=== PATIENT | female | born 2005 | race Caucasian/White ===

== ENCOUNTER 2024-01-19 21:32 | Emergency (ER) | payer OTHER, SELFPAY ==
[2024-01-19 21:35] VITALS: BP 140/89
[2024-01-19 21:58] LABS: % Basophils 0.4 % (0-2); % Immature Granulocytes 0.1 % (0-0.5); % Monocytes 8.5 % (1.7-9.3); Absolute Eosinophils 0.1 10^3/uL (0-0.7); Absolute Lymphocytes 3.3 10^3/uL (1.2-3.4); Absolute Monocytes 0.7 10^3/uL (0.1-0.6); Absolute Neutrophils 3.6 10^3/uL (1.4-6.5); Hematocrit 33.4 % (37.0-47.0); Hemoglobin 10.5 g/dL (12.0-16.0); Mean Corp Hgb Conc. 31.4 g/dL (33.0-37.0); Mean Corpuscular Hgb 20.3 pg (27.0-31.0); Mean Corpuscular Volume 64.6 fL (81.0-99.0); Mean Platelet Volume 8.9 fL (7.4-10.4); Nucleated Red Blood Cells % 0 %; Platelet Count 331 10^3/uL (130-400); Red Blood Cell Count 5.17 10^6/uL (4.20-5.40); Red Cell Dist. Width 18.7 % (11.5-14.5); White Blood Cell Count 7.6 10^3/uL (4.8-10.8)
[2024-01-19 22:07] LABS: HCG, Serum Qualitative Screen Negative
[2024-01-19 22:09] LABS: Urine Albumin Negative (Neg - Trace); Urine Bilirubin Negative (Negative); Urine Character Clear (Clear); Urine Color Yellow; Urine Glucose Negative (Negative); Urine Ketone Negative (Negative); Urine Leukocyte Negative (Negative); Urine Nitrite Negative (Negative); Urine Occult Blood Negative (Negative); Urine Specific Gravity 1.015 (<1.030); Urine Urobilinogen Negative (Neg - 1+)
[2024-01-19 22:17] LABS: ALT (SGPT) 17 U/L (0-35); AST (SGOT) 31 U/L (14-36); Albumin 4.7 g/dl (3.5-5.0); Alkaline Phosphatase 80 U/L (38-126); Blood Urea Nitrogen 9 mg/dl (7-17); Calcium 9.2 mg/dl (8.4-10.2); Carbon Dioxide 25 mmol/L (22-30); Chloride 104 mmol/L (98-107); Glucose 90 mg/dl (70-99); Potassium 3.5 mmol/L (3.5-5.1); Sodium 137 mmol/L (135-145); Total Bilirubin 0.3 mg/dl (0.2-1.3); eGFR > 60.00
[2024-01-20] MEDS: VALIUM 5 MG PO (00:59)
[2024-01-20 01:06] LABS: COVID-19 Antigen Negative (Negative)
--- NOTE | 2024-01-20 01:14 | ED.GENMED ---
History of Present Illness
General
Chief Complaint: Musculo-Skeletal Complaint
Source: patient and family
Exam Limitations: none
Time Seen by Provider: 01/20/24 00:04
Travel History
Have you had any contact with someone who has COVID-19?: No
Do you have any symptoms of coronavirus? Fever > 100 degrees, chills, cough, shortness of breath, sore throat, loss of taste or smell, muscle aches, or headache?: Yes
Symptoms:: body aches
History of Present Illness
History of Present Illness:
18-year-old female presents with neck stiffness. She states it started in her left trapezius region and now is also on the right. She does lift weights and also lifts heavy things at work. She denies any specific injury. She was also concerned
that her urine was limegreen in color. No fevers. No vomiting. No rash. No shortness of breath. No nasal congestion. No sore throat. Patient states the neck pain is giving her headache. She took 1 Aleve and
Past History
Past History
ED Past Medical History: Other (Migraine)
Phy Exam
Physical Exam
Physical Exam:
CONSTITUTIONAL Patient alert and oriented to person, place and time. Well-appearing. Vital signs reviewed.
HEAD atraumatic, normocephalic.
EYES eyelids normal to inspection, Pupils equally round and reactive to light, Extraocular muscles intact, Conjunctiva normal, Sclera normal.
NECK no meningismus, mild tenderness along the bilateral trapezius region. Mild tenderness at the sternocleidomastoid bilaterally, no occipital lymphadenopathy, no cervical lymphadenopathy, oropharynx clear, trachea midline, no jugular venous
distention.
RESPIRATORY CHEST No respiratory distress noted, Chest expansion equal
BACK normal inspection, no obvious deformities
UPPER EXTREMITY range of motion normal, Motor strength normal, no cyanosis, no edema.
LOWER EXTREMITY range of motion normal, Motor strength normal, no cyanosis, no edema.
NEURO Speech normal, No focal motor deficits, Aliyah coma scale 15, Memory normal, Cranial Nerves intact to screening exam.
SKIN skin warm, dry, and normal in color.
PSYCHIATRIC patient oriented to person place and time, Normal affect.
Course
Orders/Labs/Results
Orders:
Orders
01/19/24 21:43
Test Result ONCE
01/19/24 21:46
COVID-19 Antigen Urgent
Source: Nasal Swab
INF RAPID [Influenza A+B Rapid Molecular] Urgent
ALESSIO Source: Nasal Swab
Specimen Description:
01/19/24 21:51
CMP [Comprehensive Metabolic Panel] Urgent
Complete Blood Count/With Diff Urgent
HCG, Serum Qualitative Screen Urgent
Urinalysis Reflex To Culture Urgent
Date Specimen was Collected: 01/19/24
Time Specimen was Collected: 21:43
01/20/24 00:57
Diazepam [Valium] 5 mg PO NOW STA
Abnormal Lab Results
01/19/24
21:51
Hgb 10.5 L g/dL
(12.0-16.0)
Hct 33.4 L %
(37.0-47.0)
MCV 64.6 L fL
(81.0-99.0)
MCH 20.3 L pg
(27.0-31.0)
MCHC 31.4 L g/dL
(33.0-37.0)
RDW 18.7 H %
(11.5-14.5)
Absolute Monos (auto) 0.7 H 10^3/uL
(0.1-0.6)
01/19/24 21:51
01/19/24 21:51
Vital Signs
Initial and Last Documented VS:
Initial Vital Signs
Temp Pulse Resp BP Pulse Ox
98.9 F 95 18 140/89 100
01/19/24 21:35 01/19/24 21:35 01/19/24 21:35 01/19/24 21:35 01/19/24 21:35
Last Documented Vital Signs
Temp Pulse Resp BP Pulse Ox
98.9 F 95 18 140/89 100
01/19/24 21:35 01/19/24 21:35 01/19/24 21:35 01/19/24 21:35 01/19/24 21:35
MDM/Problems Addressed
MDM/Problems Addressed:
Trapezius spasm
*Pulse Oximetry
Patient hypoxic: no
*Critical Care Note
Total Time (30-74mins, 75-104mins- exclusive of procedures): Not Applicable
Data Reviewed
Source: patient
Further Testing Considered But Not Given:
Consider lumbar puncture but no meningismus, no fever, white count normal
Update Note
Update Note:
Patient observed. No clinical concern for meningitis. Will recommend warm compresses, NSAIDs and muscle relaxer as needed
ED Attending Note
-
Portions of this chart may have been created with voice recognition software.� Occasional wrong word or��sound alike� substitutions may have occurred due to the inherent limitations of voice recognition software.
Discharge Plan
Departure
Patient Disposition: Home (Routine Discharge)
Date of Disposition: 01/20/24
Time of Disposition: 01:17
Patient with high blood pressure during this ER visit?: Yes
Discharge Problem:
Cervical paraspinal muscle spasm
Instructions: Muscle Spasm ED
Prescriptions:
New
cyclobenzaprine 10 mg tablet
10 mg PO TID PRN (Reason: muscle spasm) Qty: 15 0RF
Referrals:
Andrea Mccormack I., DO [Family Provider] -
Stand Alone Forms: Return to Work
Activity Restrictions/Additional Instructions:
Please use ibuprofen every 6 hours as discussed. Apply warm compresses 3-4 times a day. Slow stretching as tolerated as discussed. Return immediately for fevers, redness, rash, worsening symptoms, vomiting or any other concerns. Please see your
doctor in the next 3 days if symptoms persist.
Interventions
Interventions:
*Risk Screen - Suicide Last Done: 01/19/24 21:35
*General Assessment Last Done: 01/19/24 21:35
*Neglect/Abuse Screening Last Done: 01/19/24 21:35
ED- Fall Risk Assessment Last Done: 01/19/24 21:35
*ED COVID-19 Vaccine History Last Done: 01/19/24 21:35
ED-Musculoskeletal Assessment Last Done: 01/20/24 00:28
== END 2024-01-20 01:29 | disposition home or self-care (01) ==
LOC: EMR 21:32
PROVIDERS: Emergency Medicine; EMERGENCY PHYSICIAN Emergency Medicine; FAMILY PHYSICIAN Internal Medicine
DX: M62.838 Other muscle spasm (principal); E03.0 Congenital hypothyroidism with diffuse goiter
CPT/HCPCS: 99283; 80053; 81003; 84703; 85025; 87502; 87811